=== PATIENT | female | born 1950 | race Asian ===

== ENCOUNTER → 2017-04-11 | Outpatient (CLI) | payer MEDICARE, MEDICAID | END | disposition home or self-care (01) | LOC: CFH 10:52 | PROVIDERS: ATTEND Specialist | DX: J32.0 Chronic maxillary sinusitis (principal); J32.2 Chronic ethmoidal sinusitis | CPT/HCPCS: 70486 ==

== ENCOUNTER → 2018-09-29 | Outpatient (CLI) | payer MEDICARE, MEDICAID | END | disposition home or self-care (01) | LOC: CFH 13:27 | PROVIDERS: ATTEND Specialist | DX: J32.1 Chronic frontal sinusitis (principal); J32.2 Chronic ethmoidal sinusitis; J32.0 Chronic maxillary sinusitis; M89.39 Hypertrophy of bone, multiple sites | CPT/HCPCS: 70486 ==

== ENCOUNTER → 2019-01-07 | Outpatient (CLI) | payer MEDICARE, MEDICAID ==
[~2019-01-07] MED LIST: ALBU18HF INH; CIPR500T3 PO; FLUT9.9S INH; METO25TA35 PO; SULF1TAB24 PO; TIOT18CA INH
== END | disposition home or self-care (01) ==
LOC: STAR 10:19
PROVIDERS: ATTEND Otolaryngology
DX: J32.4 Chronic pansinusitis (principal)
CPT/HCPCS: 93005

== ENCOUNTER 2019-01-12 06:10 | Observation (INO) | payer MEDICARE, MEDICAID ==
[~2019-01-12] VITALS: Ht 157.5 cm; Wt 69.0 kg
[~2019-01-12 06:10] MED LIST changes: -CIPR500T3 PO; -SULF1TAB24 PO
[2019-01-12] MEDS ORDERED: LACTATED RINGERS 1,000 ML IV SCH ×2 (06:31→14:30)
[2019-01-12] MEDS ORDERED: OXYMETAZOLINE NASAL SPRAY 0.05%, 15ML ONE (06:58)
[2019-01-12] MEDS ORDERED: FLUORESCEIN SODIUM 500 MG/5 ML ONE (06:58)
[2019-01-12] MEDS ORDERED: LIDOCAINE 1%, 20ML ONE (06:58)
[2019-01-12] MEDS ORDERED: EPINEPHRINE 1 MG/ML, 1ML ONE (06:58)
[2019-01-12] MEDS ORDERED: EPINEPHRINE TOPICAL SOLN 1 MG/ML, 30ML ONE (06:58)
[2019-01-12] MEDS ORDERED: BACITRACIN OINT 500U/GM, 15 GM ONE (06:58)
[2019-01-12] MEDS ORDERED: GABAPENTIN 300 MG CAPSULE ONE (07:20)
[2019-01-12] MEDS ORDERED: ACETAMINOPHEN 500 MG TABLET ONE (07:20)
[2019-01-12] MEDS ORDERED: GABAPENTIN 300 MG CAPSULE PO ONE (07:30)
[2019-01-12] MEDS ORDERED: ACETAMINOPHEN 500 MG TABLET PO ONE (07:30)
[2019-01-12] MEDS ORDERED: FENTANYL PF 100 MCG/2ML ONE (08:24)
[2019-01-12] MEDS ORDERED: HYDROmorphone 2 MG/ML, 1ML IVPush PRN (08:30)
[2019-01-12] MEDS ORDERED: HALOPERIDOL 5 MG/ML IV PRN (08:30)
[2019-01-12] MEDS ORDERED: PROMETHAZINE 25 MG/ML, 1ML IV PRN (08:30)
[2019-01-12] MEDS ORDERED: MEPERIDINE/PF 25MG/0.5ML IVPush PRN (08:30)
[2019-01-12] MEDS ORDERED: PROCHLORPERAZINE 5 MG/ML, 2ML IV PRN (08:30)
[2019-01-12] MEDS ORDERED: METOPROLOL 1 MG/ML, 5ML IV PRN (08:30)
[2019-01-12] MEDS ORDERED: OXYcodone 5 MG/5 ML ORAL.SOL UDC PO PRN (08:30)
[2019-01-12] MEDS ORDERED: FENTANYL PF 100 MCG/2ML IV PRN (08:30)
[2019-01-12] MEDS ORDERED: LABETALOL 5MG/ML, 20ML IV PRN (08:30)
[2019-01-12] MEDS ORDERED: DIPHENHYDRAMINE 50 MG/ML, 1ML IVPush PRN (08:30)
[2019-01-12] MEDS ORDERED: EPHEDRINE 50 MG/ML, 1ML ONE (08:36)
[2019-01-12] MEDS ORDERED: CIPROFLOXACIN 400MG/200ML PMX ONE (08:36)
[2019-01-12] MEDS ORDERED: BACITRACIN 50,000 UNIT ONE (09:06)
[2019-01-12] MEDS ORDERED: EPINEPHRINE TOPICAL SOLN 1 MG/ML, 30ML TP ONE (09:12)
[2019-01-12] MEDS ORDERED: BACITRACIN 50,000 UNIT IRRIG ONE (09:13)
[2019-01-12] MEDS ORDERED: LIDOCAINE 1%, 20ML INFIL ONE (09:13)
[2019-01-12] MEDS ORDERED: FLUORESCEIN SODIUM 500 MG/5 ML IV ONE (09:13)
[2019-01-12] MEDS ORDERED: EPINEPHRINE 1 MG/ML, 1ML INFIL ONE (09:14)
[2019-01-12] MEDS ORDERED: CEFAZOLIN 1,000 MG ONE (09:57)
[2019-01-12] MEDS ORDERED: DEXAMETHASONE 4 MG/ML, 1ML ONE (09:57)
[2019-01-12] MEDS ORDERED: SUCCINYLCHOLINE 20 MG/ML, 10ML ONE (09:57)
[2019-01-12] MEDS ORDERED: ONDANSETRON 2MG/ML, 2ML ONE (09:57)
[2019-01-12] MEDS ORDERED: GLYCOPYRROLATE 0.2MG/1ML, 5ML ONE (09:57)
[2019-01-12] MEDS ORDERED: NEOSTIGMINE 1 MG/ML, 10ML ONE (09:57)
[2019-01-12] MEDS ORDERED: ROCURONIUM 10MG/ML,5ML ONE (09:57)
[2019-01-12] MEDS ORDERED: PROPOFOL 10 MG/ML, 20ML ONE (09:57)
[2019-01-12] MEDS ORDERED: hydrALAzine 20 MG/ML, 1ML ONE (11:54)
[2019-01-12] MEDS: hydrALAzine 20 MG/ML, 1ML IV PRN ×2 (11:58→12:25)
[2019-01-12 14:20] VITALS: BP 133/83
[2019-01-12] MEDS ORDERED: MORPHINE SULFATE 4 MG/ML, 1ML IVPush PRN (14:30)
[2019-01-12] MEDS ORDERED: HYDROcodone/APAP 5/325 TABLET PO PRN (15:00)
[2019-01-12] MEDS ORDERED: ONDANSETRON 2MG/ML, 2ML IVPush PRN (15:00)
[2019-01-12] MEDS ORDERED: ALBUTEROL SULFATE 2.5 MG/3 ML NPPB PRN (15:30)
[2019-01-12] MEDS: IPRATROPIUM 0.5 MG/2.5 ML INHA NPPB SCH ×2 (15:30→22:49)
[2019-01-12] MEDS: CIPROFLOXACIN/PMX 400MG/200ML 200 ML IV SCH (15:46)
[2019-01-12] MEDS: SODIUM CHLORIDE 0.9% 1,000 ML IV SCH (15:47)
[2019-01-12 19:30] VITALS: BP 142/75
[2019-01-12] MEDS ORDERED: ACETAMINOPHEN 325 MG TABLET PO PRN (21:00)
[2019-01-12] MEDS: SULFAMETH./TRIMETHOPRIM DS 800MG/160MG TABLET PO SCH (21:32)
[2019-01-12 23:31] VITALS: BP 143/62
[2019-01-13] MEDS: SODIUM CHLORIDE 0.9% 1,000 ML IV SCH (02:51)
[2019-01-13 03:18] VITALS: BP 160/85
[2019-01-13] MEDS: IPRATROPIUM 0.5 MG/2.5 ML INHA NPPB SCH (03:30)
[2019-01-13] MEDS: CIPROFLOXACIN/PMX 400MG/200ML 200 ML IV SCH (03:44)
[2019-01-13 06:35] VITALS: BP 129/70
[2019-01-13] MEDS: SULFAMETH./TRIMETHOPRIM DS 800MG/160MG TABLET PO SCH (07:59)
[2019-01-13] MEDS ORDERED: METOPROLOL TARTRATE 25 MG TABLET PO SCH (09:00)
[2019-01-13] MEDS ORDERED: SULF1TAB24 PO (10:03)
[2019-01-13] MEDS ORDERED: CIPR500T3 PO (10:03)
[2019-01-13 10:09] VITALS: BP 128/80
== END 2019-01-13 11:20 | disposition home or self-care (01) ==
LOC: OUT 06:10 → 4NOR 14:15 → OUT 14:25 → DCLOUNGE 01-13 10:56
PROVIDERS: ADMIT Otolaryngology; ATTEND Otolaryngology
DX: J32.9 Chronic sinusitis, unspecified (principal); D84.9 Immunodeficiency, unspecified
CPT/HCPCS: 30520; 31253; 31267; 87070; 87075; 87077; 87186; 87205; 88304; 88311; 94640; 96365; 96366; G0378; J0171; J0330; J0360; J0690; J0744; J1100; J2405; J2704; J2710; J3010; J3490; J7030; J7120; J7644